=== PATIENT | female | born 1995 ===

== ENCOUNTER 2024-05-13 09:28 | Inpatient (IN) | payer MEDICARE ==
[~2024-05-13] VITALS: Ht 175.3 cm; Wt 127.0 kg
[2024-05-13 14:53] VITALS: BP 138/83
[2024-05-13 15:06] VITALS: BP 138/83
--- NOTE | 2024-05-13 15:14 | NUR ---
PATIENT BELONGINGS AND SAFE ITEMS STORED
[2024-05-13] MEDS ORDERED: Aluminum Hydroxide 320MG/5ML 473 ML PO PRN (15:30)
[2024-05-13] MEDS ORDERED: LORazepam 2 MG Tab PO PRN ×2 (15:30)
[2024-05-13] MEDS ORDERED: Ibuprofen 600 MG Tab PO PRN (15:30)
[2024-05-13] MEDS ORDERED: Acetaminophen 325 MG TABLET PO PRN (15:30)
[2024-05-13] MEDS ORDERED: Haloperidol 5 MG Tab PO PRN ×2 (15:30)
[2024-05-13] MEDS ORDERED: FLU VACC TS2024-25(6MOS UP)/PF 45 MCG/0.5 ML SYRINGE IM SCH (15:30)
[2024-05-13] MEDS ORDERED: Mirtazapine 15 MG Tab PO PRN (15:35)
[2024-05-13] MEDS ORDERED: METF500 PO (16:00)
[2024-05-13] MEDS ORDERED: NORGESTIMATE-E1 EAC2 PO (16:06)
--- NOTE | 2024-05-13 16:31 | NUR ---
ADMITTED AT 1630- PT A/OX4. PLEASANT AND COOPERATIVE. INTAKE COMPLETED. PT IN FOR SI AND DEPREESSION. STATES FEELS SI ALL THE TIME. AT HOME SHE NEEDED HER FIANCE TO MAKE ALL AND SIMPLE DECSIONS FOR HER. SIMPLE IT IS OK TO SHOWER. SHE IS GLAD SHE MADE IT TO AN IN PT FACILITY AND HAS BEEN TRYING TO GET HELP SINCE JULY OF THIS YEAR. PT HAS 2 OF HER OWN BOOKS THAT WERE CHECKED BY RN. PT OPEN FOR INTERVIEW QUESTIONS. EXPLAINED PROGRAM FOR HERE IN THE [facility] AND VERBAL RETURN AND QUESTIONS ANSWERED. WILL CONTINUE TO MONITOR.
[2024-05-13] MEDS ORDERED: MetFORMIN HCl 500 mg PO SCH (17:00)
[2024-05-13 20:20] VITALS: BP 134/84
--- NOTE | 2024-05-14 04:20 | NUR ---
SHIFT SUMMARY AT THE BEGINNING OF MY SHIFT, THE PATIENT WAS IN HER ROOM LAYING IN BED WITH HEADPHONES ON AND WRITING IN HER JOURNAL. SHE DENIED ANY CURRENT SI, HI OR AVH. SHE STATED THAT SHE DOES SOMETIMES HEAR VOICES AND SEE THINGS, BUT HAS NOT HAD ANY HALLUCINATIONS SINCE ARRIVING TO [facility]. PT ALERT AND COOPEARTIVE WITH CARE. SHE JOINED PEERS IN GROUP ROOM, WATCHING TV AND HAD EVENING SNACK. SHE REQUESTED AND RECEIVED ADVIL FOR HEADACHE. PT BECAME TEARFUL IN THE EVENING STATING THAT SHE WAS FEARFUL OF HER STAY IN [facility], UNSURE OF WHAT TO EXPECT. SHE STATED THAT SHE IS FEARFUL TO BE ALONE WITH HER THOUGHTS. DISCUSSED UNIT SCHEDULE AND WHAT IS EXPECTED. PT TOLD THAT SHE COULD USE HEADPHONES TO LISTEN TO MUSIC. PT ENCOURAGED TO COMMUNICATE ANY FURTHER CONCERNS. SHE SHOWERED AND RECEIVED PRN DOSE OF REMERON AT 2150 AND RETIRED TO HER ROOM WITH HEADPHONES. SHE HAS APPEARED TO SLEEP THROUGH THE NIGHT, EYES CLOSED, RESPIRATIONS EVEN AND UNLABORED.
[2024-05-14 08:04] VITALS: BP 141/80
--- NOTE | 2024-05-14 08:12 | NUR ---
PT A/OX4. PLEASANT AND COOPERATIVE. JUST FINISHED BREAKFAST. INTERACTING WITH PEERS WILL CONTINUE TO MONITOR
[2024-05-14] MEDS ORDERED: NORGESTIMATE PO SCH (09:00)
[2024-05-14] MEDS ORDERED: ETHINYL ESTRADIOL PO SCH (09:00)
--- NOTE | 2024-05-14 17:11 | NUR ---
SHIFT SUMMARY. PT A/O X4. COOPERATIVE AND INTERACTS WITH PEERS. STATES SI AAND HI THIS DAY. STATES SHE SEEMS TO BE A BIT MORE RELAXED SINCE ARRIVING TO THE [facility]. WHEN NOT IN GROUPS OR INTERVIEW WITH AND JENNY BEDOLLA SHE WOULD LAY ON HER BED AND JOURNAL. NO CRYING ON SHIFT BUT LOTS OF CRING IN HER TALK WITH DR CHENG AND JENNY BEDOLLA. SHE TALKED TO HER FIANCE AND WAS HAPPY. OVER ALL SHE SHE HAS HAD AN UNEVENTFUL DAY. WILL CONTINUE TO MONITOR.
[2024-05-14 22:23] VITALS: BP 137/76
--- NOTE | 2024-05-15 03:35 | NUR ---
SHIFT SUMMARY: PATIENT IS A/OX4, ABLE TO VOICE NEEDS AND HAVE MEANINGFUL CONVERSATION. SHE IS COMPLIANT WITH: CARE, ASSESSMENT AND MEDICATIONS. SHE IS VISITING WITH OTHER PATIENTS AND STAFF APPROPRIATELY. SHE CURRENTLY DENIES SI, VH OR AH. SHE STATES "I AM REALY ENJOYING MY TIME HERE, THE STAFF AND CARE ARE AMAZING". SHE GOES TO BED WITHOUT ENCOURAGEMENT AND SLEEPS THROUGH THE NIGHT. SHE DID MENTION THAT SHE TALKED WITH PROVIDER REGARDING ADDING ABILIFY TO HER MEDICATIONS. I WILL ASK ABOUT ORDERS. WE WILL CONTINUE TO MONITOR EVERY 15 MINUTES FOR SAFETY AND COMFORT. NO NOTED BEHAVIORS OR ISSUES.
--- NOTE | 2024-05-15 04:47 | NUR ---
PATIENT AWAKE AND C/O "BODY CRAMPING" 430AM. GATERAID AND TYLENOL GIVEN. ENCOURAGED PATIENT TO GET MORE REST. SHE RETURNED TO HER ROOM WITHOUT ENCOURAGEMENT. NO NOTED BEHAVIORS OR ISSUES. SHE DID REQUEST THAT NURSES ENCOURAGE HER TO DRINK MORE FLUIDS TO ASSIST WITH PM CRAMPING.
[2024-05-15 08:22] VITALS: BP 133/79
--- NOTE | 2024-05-15 09:28 | NUR ---
PT WITH C/O HEADACHE, BODY ACHES AND DIZZINESS THIS AM. STATES THAT THIS IS A TYPICAL HEADACHE FOR HER. VSS, AFEBRILE. PT MEDICATED WITH IBURPROFEN FOR PAIN. ALLOWED TO EAT BREAKFAST IN THE VISITOR ROOM R/T PHOTOPHOBIA. PT AMBULATED BACK TO HER ROOM WITH A WASHCLOTH ON HER EYES AND ASSIST FROM THIS RN AFTER SHE ATE BREAKFAST. PT DENIES SI, HI AND AVH. PT COMPLIANT WITH DAILY MEDICATIONS. RESTING IN BED WITH EYES CLOSED, CURTAIN PULLED FOR COMFORT. ENCOURAGED PT TO LET STAFF KNOW IF SHE HAS ANY NEEDS.
[2024-05-15] MEDS ORDERED: Losartan Potassium 50 MG Tab PO SCH (10:55)
[2024-05-15] MEDS ORDERED: ARIPiprazole 5 MG Tab PO SCH ×3 (10:55→21:00)
[2024-05-15] MEDS ORDERED: Spironolactone 25 MG Tab PO SCH (11:00)
--- NOTE | 2024-05-15 16:47 | NUR ---
SHIFT SUMMARY: PT ALERT, ORIENTED AND COOPERATIVE. DENIES SI, HI AND AVH. PT ATTENDED GROUPS AND WAS PRESENT IN THE UNIT MILIEU. PT C/O HEADACHE OFF AND ON THROUGH OUT THE DAY. PT MEDICATED WITH IBUPROFEN PER EMAR X 2. PT COMPLIANT WITH MEDICATIONS AND CARE PLAN. PT SPENT TIME WITH [facility].
[2024-05-15 21:14] VITALS: BP 150/86
--- NOTE | 2024-05-16 02:04 | NUR ---
SHIFT SUMMARY: ASSUMED CARE FROM PRIOR SHIFT. PATIENT IS A/OX4, ABLE TO VOICE NEEDS AND HAVE MEANINGFUL CONVERSATIONS. SHE IS COMPLENT WITH ASSESSMENT, CARE AND MEDICATIONS. SHE CURRENTLY DENIES SI, VH AND AH. SHE STILL EXPRESSES DEPRESSION AND ANXIETY. SHE ISN'T TEARFUL THIS SHIFT. SHE IS SOCIALIZING WITH STAFF AND OTHER PATIENTS APPROPRIATELY. SHE GOES TO BED WITHOUT ENCOURAGMENT. SHE IS CURRENTLY SLEEPING WITHOUT ANY BEHAVIORS OR ISSUES. WE WILL CONTINUE TO MONITOR EVERY 15 MIN FOR SAFETY AND COMFORT.
--- NOTE | 2024-05-16 04:12 | NUR ---
PATIENT A WAKE AND C/O OF A HEADACHE. SHE WAS GIVEN PO/PRN MOTRIN AND RESTED IN SR. WE WILL CONTINUE TO MONITOR EVERY 15MIN.
[2024-05-16 08:05] VITALS: BP 127/81
[2024-05-16] MEDS ORDERED: Polyethylene Glycol 3350 17 gm PO SCH (09:00)
--- NOTE | 2024-05-16 17:16 | NUR ---
SHIFT SUMMARY: PT ALERT, ORIENTED AND COOPERATIVE WITH CARE. DENIES SI, HI AND AVH. DECLINED ABILIFY THIS AM AND SPOKE WITH THE PROVIDER REGARDING HER CONCERNS. DISCUSSED POSSIBLE PLAN FOR DISCHARGE ON 05/18.
--- NOTE | 2024-05-16 17:29 | NUR ---
PT ALERT AND ORIENTED. AT NURSING STATION OFF AND ON THROUGHOUT SHIFT. PT BECAME TEARFUL AND ANXIOUS DURING THE AFTERNOON. SHE SPENT TIME IN THE SENSORY ROOM AND THE PATIO. MEDICATED WITH PRN VISTARIL. PT CALMED TOWARDS THE EVENING AND WAS TALKATIVE WITH STAFF AND OTHER PATIENTS. MEDICATED WITH PRN TYLENOL FOR C/O BODY ACHES AND PRN TUMS FOR C/O OF STOMACH DISCOMFORT.
[2024-05-16] MEDS ORDERED: Polyethylene Glycol 3350 17 gm PO PRN ×2 (18:00)
--- NOTE | 2024-05-17 04:33 | NUR ---
Patient is alert and oriented times four. Spent time in day room majority of evening visiting with peers and watching movie. States no SI,HI or AVH at time of assessment. Able to express her own needs. Did not require sleep medication last night, but has slept all night since approximently 2230. Will continue monitoring every 15 minutes for safety.
[2024-05-17 07:55] VITALS: BP 140/93
--- NOTE | 2024-05-17 16:26 | NUR ---
SHIFT SUMMARY: PT ALERT, ORIENTED AND COOPERATIVE. DENIES SI, HI AND AVH. PT AHS BEEN VISIBLE ON THE UNIT AND ACTIVE IN THE MILIEU. MEDICATED WITH PRN MIRALAX AND IBUPROFEN. NO ACUTE CHANGES THIS SHIFT.
--- NOTE | 2024-05-18 04:22 | NUR ---
Lorenza is an alert and oriented patient who is pleasant and cooperative with both staff and her peers. At the start of the shift, she was tearful due to an outburst by another peer (not directed at her). She is very sensitive and seems to require a lot of reassurances from staff that she is doing alright. She expressed no SI, HI or AVH at the time of this RN's assessment. She has been sleeping without difficulty without any PRN HS medications throughout the night. Will continue close monitoring every 15 minutes for safety
[2024-05-18 12:36] VITALS: BP 149/89
--- NOTE | 2024-05-18 17:33 | NUR ---
SHIFT SUMMARY PT A/O X4; PLEASANT AND COOPERATIVE WITH CARE. SHE DENIES SI, HI, OR ANY HALLUCINATIONS. SHE REPORTS SOME ANXIETY DUE TO HER BORDERLINE PERSONALITY BUT HAS BEEN USING HER COPING SKILLS WELL. PT REPORTS CONSTIPATION AND GIVEN MIRALAX THIS AM. PLAN IS FOR PT TO DISCHARGE BACK HOME TO THE [place]. SHE IS MONITORED VIA Q15 ROUNDING FOR SAFETY. PT HAS NO COMPLAINTS OR CONCERNS AT THIS TIME.
[2024-05-18 20:52] VITALS: BP 151/95
--- NOTE | 2024-05-19 04:30 | NUR ---
patient is alert and oriented, pleasant and cooperative with care. She was up in the milieu all evening playing board games with her peers. No complaints of discomfort or anxiety noted, No SI, HI or AVH on assessment. Will continue to monitor closely every 15 minutes for safety and comfort.
[2024-05-19 08:01] VITALS: BP 150/82
--- NOTE | 2024-05-19 18:16 | NUR ---
SHIFT SUMMARY PT VERY PLEASANT AND COOPERATIVE WITH CARE. PT VERY INGAGED WITH STAFF AND PEERS. PT CONTINUES TO REPORT CONCERNS OF DISCHARGE AND RETURN TO HOME. PT HAS BECOME FRIENDS WITH SEVERAL PEERS AND EXCHANGED NUMBERS FOR FUTURE CONTACT AND SUPPORTS. PT EXPECTED TO DISCHARGE TOMORROW TO HOME.
[2024-05-19 22:09] VITALS: BP 146/85
--- NOTE | 2024-05-20 04:09 | NUR ---
Patient is pleasant, alert and oriented and cooperative with care. Lorenza spent her evening out in the milieu journaling. She participated in wrap up community group expressing her thoughts regarding how she met her goals for the day. She is still feeling anxious about her discharge to home tommorow, but expresses her knowledge regarding using her coping skills to move forward. will continue close observation every 15 minutes for comfort and safety
[2024-05-20 07:36] VITALS: BP 148/77
--- NOTE | 2024-05-20 11:45 | NUR ---
DISCHARGE PT DISCHARGED TO [facility] TO HOME. PT PROVIDED WITH DISCHARGE EDUCATION, PERSONAL BELONGING RETURNED, AND ESCORTED OUT OF FACILITY BY [facility]. PT VERY THANKFUL FOR STAFF AND CARE PROVIDED DURING HER STAY AND REPORTS WILL F/U W/ PHONE CALL FOR UPDATES.
== END 2024-05-20 11:47 | disposition home or self-care (01) | DRG 883 ==
LOC: BHU 09:28
PROVIDERS: ADMIT Psychiatry & Neurology Psychiatry
DX: F60.3 Borderline personality disorder (principal); R45.851 Suicidal ideations; F32.A Depression, unspecified; F43.12 Post-traumatic stress disorder, chronic; Z88.8 Allergy status to other drugs, medicaments and biological substances; F41.9 Anxiety disorder, unspecified; Z98.890 Other specified postprocedural states; F12.90 Cannabis use, unspecified, uncomplicated; Z79.84 Long term (current) use of oral hypoglycemic drugs; Z79.899 Other long term (current) drug therapy
CPT/HCPCS: A9270